=== PATIENT | male | born 1985 | race Hispanic/Latino ===

== ENCOUNTER 2018-08-12 07:08 | Observation (INO) | payer OTHER ==
[2018-08-12 07:24] VITALS: BMI 39.5
--- NOTE | 2018-08-12 07:56 | ED PDOC ---
HPI: Chest Pain Time Seen by Provider: 08/12/18 07:31 Chief Complaint (Nursing): Chest Pain Chief Complaint (Provider): Chest Pain History Per: Patient History/Exam Limitations: no limitations Onset/Duration Of Symptoms: Days (1) Quality: Sharp Alleviating Factors: Other (Any movement) Additional Complaint(s): 33 years old male presents to ER for evaluation of sharp constant chest pain onset last night while sleeping. Patient reports shortness of breath in certain positions and states pain worsens with any movement. He denies nausea, vomiting or recent travel. PMD: non provided Past Medical History Reviewed: Historical Data, Nursing Documentation, Vital Signs Vital Signs: Last Vital Signs Temp 98.7 F 08/12/18 07:24 Pulse 95 H 08/12/18 07:24 Resp 17 08/12/18 07:24 BP 187/121 H 08/12/18 07:24 Pulse Ox 97 08/12/18 07:24 - Medical History PMH: No Chronic Diseases - Surgical History Surgical History: No Surg Hx - Family History Family History: States: Unknown Family Hx - Social History Current smoker - smoking cessation education provided: No Alcohol: Social Drugs: Denies - Allergies Allergies/Adverse Reactions: Allergies Allergy/AdvReac Type Severity Reaction Status Date / Time No Known Allergies Allergy Verified 08/12/18 07:34 JEWEL Risk Score for UA/NSTEMI - JEWEL Risk Score Age > 64: NO 3 or more CAD Risk Factors: NO Known CAD (Stenosis greater than 50%): NO Aspirin use in past 7 days: NO Severe Angina: NO EKG ST changes greater than 0.5mm: NO Positive Cardiac Marker: NO JEWEL Score: 0 Risk %: 5% Review of Systems ROS Statement: Except As Marked, All Systems Reviewed And Found Negative Cardiovascular: Positive for: Chest Pain Respiratory: Positive for: Shortness of Breath Gastrointestinal: Negative for: Nausea, Vomiting Physical Exam - Reviewed Nursing Documentation Reviewed: Yes Vital Signs Reviewed: Yes - Physical Exam Appears: Positive for: Non-toxic, No Acute Distress (morbidly obese) Head Exam: Positive for: ATRAUMATIC, NORMOCEPHALIC Cardiovascular/Chest: Positive for: Regular Rate, Rhythm. Negative for: Murmur Respiratory: Positive for: Normal Breath Sounds. Negative for: Wheezing Extremity: Positive for: Normal ROM. Negative for: Pedal Edema, Swelling Neurologic/Psych: Positive for: Alert, Oriented (x3) - Laboratory Results Result Diagrams: 08/12/18 07:50 08/12/18 07:50 - ECG Interpretation Of ECG: NSR @ 91, TWI I, aVL, V6. O2 Sat by Pulse Oximetry: 97 (RA) Pulse Ox Interpretation: Normal Medical Decision Making Medical Decision Making: Time: 737 Initial Impression: Chest pain Initial Plan: --EKG --CMP --Magnesium --Troponin I --CBC --Chest x-ray --PTT/PT Accession No. : [id number] Patient Name / ID : ASHLEY DANIELSON / [id number] Exam Date : 08/12/2018 07:39:58 ( Approved ) Study Comment : Sex / Age : M / 33Y Creator : Dov Elizabeth MD Dictator : Dov Elizabeth MD Property Condition Assessor : Assistant Import Manager : Dov Elizabeth MD Approver2 : Report Date : 08/12/2018 08:03:34 My Comment : Date of service: 08/12/2018 PROCEDURE: CHEST RADIOGRAPH, 1 VIEW HISTORY: CP COMPARISON: None available. FINDINGS: LUNGS: No acute pulmonary disease appreciated bilaterally. PLEURA: No pneumothorax or pleural fluid seen. CARDIOVASCULAR: Cardiac silhouette appears somewhat prominent but without pulmonary vascular congestion. OSSEOUS STRUCTURES: No significant abnormalities. VISUALIZED UPPER ABDOMEN: Nonspecific right hemidiaphragm elevation noted. OTHER FINDINGS: None. IMPRESSION: Prominent cardiac silhouette. This may be a function of technical magnification however cardiomegaly is not excluded. Right hemidiaphragm elevation of indeterminate etiology. No airspace disease bilaterally. Scribe Attestation: Documented by Arely Rojas, acting as a scribe for Eugenia Mao MD. Provider Scribe Attestation: All medical record entries made by the Scribe were at my direction and personally dictated by me. I have reviewed the chart and agree that the record accurately reflects my personal performance of the history, physical exam, medical decision making, and the department course for this patient. I have also personally directed, reviewed, and agree with the discharge instructions and disposition. Disposition - Clinical Impression Clinical Impression: Chest pain - Patient ED Disposition Is Patient to be Admitted: Yes - Disposition Disposition Time: 09:54 Condition: STABLE Forms: [employer] (Romanian) - Pt Status Changed To: Hospital Disposition Of: Observation - POA Present On Arrival: None
--- NOTE | 2018-08-12 08:05 | RAD ---
Date of service: 08/12/2018 PROCEDURE: CHEST RADIOGRAPH, 1 VIEW HISTORY: CP COMPARISON: None available. FINDINGS: LUNGS: No acute pulmonary disease appreciated bilaterally. PLEURA: No pneumothorax or pleural fluid seen. CARDIOVASCULAR: Cardiac silhouette appears somewhat prominent but without pulmonary vascular congestion. OSSEOUS STRUCTURES: No significant abnormalities. VISUALIZED UPPER ABDOMEN: Nonspecific right hemidiaphragm elevation noted. OTHER FINDINGS: None. IMPRESSION: Prominent cardiac silhouette. This may be a function of technical magnification however cardiomegaly is not excluded. Right hemidiaphragm elevation of indeterminate etiology. No airspace disease bilaterally.
[2018-08-12 08:38] LABS: BASO # 0.1 K/uL (0.0-0.2); BASO % 0.5 % (0.0-2.0); EOS # 0.4 K/uL (0.0-0.7); EOS % 3.2 % (0.0-4.0); HEMOGLOBIN 13.7 g/dL (12.0-18.0); LYMPH # 1.9 K/uL (1.0-4.3); LYMPH % 14.2 % (20.0-40.0); MEAN CELL VOLUME 87.3 fl (80.0-94.0); MEAN CORPUSCULAR HEMOGLOBIN 29.8 pg (27.0-31.0); MEAN CORPUSCULAR HGB CONC 34.1 g/dL (33.0-37.0); MEAN PLATELET VOLUME 9.7 fl (7.2-11.7); MONO % 7.4 % (0.0-10.0); NEUT % 74.7 % (50.0-75.0); RBC 4.59 Mil/uL (4.40-5.90); RED CELL DISTRIBUTION WIDTH 13.6 % (11.5-14.5); WHITE BLOOD COUNT 13.5 K/uL (4.8-10.8)
[2018-08-12 08:48] LABS: INR 1.2; PROTHROMBIN TIME 13.1 Seconds (9.8-13.1)
[2018-08-12 08:50] LABS: PARTIAL THROMBOPLASTIN TIME 33.7 Seconds (25.6-37.1)
[2018-08-12 08:56] LABS: ALBUMIN 3.6 g/dL (3.5-5.0); ALT/SGPT 31 U/L (21-72); AST/SGOT 25 U/L (17-59); BLOOD UREA NITROGEN 14 mg/dl (9-20); CALCIUM 8.8 mg/dL (8.4-10.2); GFR NON-AFRICAN AMERICAN > 60; HDL CHOLESTEROL 35 MG/DL (30-70)
[2018-08-12 09:06] LABS: LDL CHOLESTEROL 134 mg/dL (0-129)
--- NOTE | 2018-08-12 13:17 | CARD ---
APPROVED REPORT Date of service: 08/12/2018 EKG Measurement Heart [id number] <Conclusion> Normal sinus rhythm ST & T wave abnormality, consider lateral ischemia Abnormal ECG
[2018-08-12] MEDS ORDERED: Pantoprazole 40 mg EC Tab PO SCH (15:15)
[2018-08-12 17:36] LABS: TROPONIN I 0.021 ng/mL (0.00-0.120)
[2018-08-12 17:41] LABS: T4 5.39 ug/dl (5.5-11.0)
[2018-08-12] MEDS: Sucralfate 1 gm/10 ml Oral Susp UD PO SCH ×2 (17:41→22:27)
[2018-08-12] MEDS: Oxycodone/Acetaminophen 5/325 mg Tab PO PRN ×2 (17:41→22:28)
[2018-08-12 17:55] LABS: T3 0.87 nmol/L (1.49-2.60)
[2018-08-12 21:44] LABS: BARBITURATES, UR NEGATIVE (NEGATIVE); BENZODIAZEPINES, UR NEGATIVE (NEGATIVE); OPIATES, UR POSITIVE (NEGATIVE); PHENCYCLIDINE, UR NEGATIVE (NEGATIVE)
--- NOTE | 2018-08-13 02:25 | CON ---
DATE: 08/12/2018 CARDIOLOGY CONSULTATION REASON FOR CONSULTATION: Chest pain. HISTORY OF PRESENT ILLNESS: The patient is a morbidly obese, young middle-aged male, weighs about 260 pounds, presented because of chest pain that he describes as sharp in the lower sternal area and increased on deep breathing or sighing. The patient denies any associated shortness of breath or diaphoresis and is unaware of any prior history of coronary artery disease. The patient denies any leg pain or leg swelling and is unaware of any history of deep venous thrombosis in the past. SOCIAL HISTORY: The patient is a nonsmoker. Occasional drinker. 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 He will get soon according to him. Has no children. REVIEW OF SYSTEMS: The patient has history of depression for which he takes bupropion and is also on Adderall 20 mg daily. The patient denies any suicidal ideations or any episode of major depression in the past. MEDICATIONS: Current medications are aspirin 81 mg once a day, Protonix 40 mg once a day. The patient did receive Lopressor 25 mg as well as sublingual nitroglycerin in the emergency room. PHYSICAL EXAMINATION: GENERAL: The patient is a young middle-aged male who does not appear to be in any acute distress. VITAL SIGNS: Blood pressure 142/88, heart rate 81, temperature 98.3, respirations 20. HEENT: Normocephalic. NECK: No JVD. CHEST: Clear. HEART: S1 and S2, regular. ABDOMEN: Soft. No guarding or rigidity. Normoactive bowel sounds. EXTREMITIES: No edema and no calf tenderness. LABORATORY DATA: SMA-7: Sodium 139, potassium 4, chloride 105, CO2 of 28, glucose 103, BUN 14, creatinine 0.8. Three sets of troponin are negative. Triglycerides elevated at 167, LDL cholesterol elevated at 134, total cholesterol and HDL cholesterol are within normal limits. PT, PTT, INR are within normal limits. Hemoglobin and hematocrit 13.7 and 40.1, white count 13.5, platelet count 214,000. EKG revealed sinus rhythm, ST-T wave changes, consider lateral ischemia. Chest x-ray revealed mild cardiomegaly as well as widened mediastinum. ASSESSMENT: 1. Chest pain and evidence of lateral ischemia, rule out myocardial infarction. 2. History of depression. 3. Hyperlipidemia. RECOMMENDATIONS: Continue aspirin 81 mg once a day, Protonix 40 mg once a day. Start Lipitor 40 mg once a day, subcutaneous Lovenox at 40 mg once a day. Obtain an echocardiogram, D-dimer as well as urine for tox screen and if HI is ruled out, schedule the patient for exercise Myoview stress test. Martin De Jesus MD
[2018-08-13] MEDS: Sucralfate 1 gm/10 ml Oral Susp UD PO SCH ×4 (08:32→21:56)
[2018-08-13] MEDS ORDERED: Perflutren Lipid Microsphere 1.5 ML SUS IV ONE (13:29)
--- NOTE | 2018-08-13 18:22 | CARD ---
APPROVED REPORT Date of service: 08/13/2018 EXAM: Two-dimensional and M-mode echocardiogram with Doppler and color Doppler. Other Information Quality : AverageRhythm : NSR INDICATION Chest Pain 2D DIMENSIONS SV50.79 mlLVEF (%)31.7 (>50%) CO4.39 L/min M-Mode DIMENSIONS Left Atrium (MM)4.57 (2.5-4.0cm)Aortic Root3.97 (2.2-3.7cm) Aortic Cusp Exc.2.80 (1.5-2.0cm) Aortic Valve AoV Peak Cororiqj184.0cm/sAoV VTI21.5cmAO Peak GR.7mmHg LVOT Peak Zraklzmq39.8cm/sLVOT VTI16.13cmAO Mean GR.4mmHg Mitral Valve MV E Ntzlixdj16.0cm/sMV E Peak Gr.94mmHgMV DECEL [id number] MV A Ufhqukhs23.7cm/sMV YVS21unJ/A ratio0.9 MVA (PHT)3.81cm2 TDI Lateral E' Peak V8.39cm/sMedial E' Peak V6.60cm/sE/Lateral E'6.9 E/Medial E'8.8 Tricuspid Valve RAP MLESPCPL0wlPi LEFT VENTRICLE The left ventricle is normal size. There is normal left ventricular wall thickness. The left ventricular systolic function is normal. The estimated ejection fraction is 60-65% No regional wall motion abnormalities noted.. Transmitral Doppler flow pattern is Grade I-abnormal relaxation pattern. No left ventricle thrombus noted on this study. There is no ventricular septal defect visualized. There is no left ventricular aneurysm. There is no mass noted in the left ventricle. RIGHT VENTRICLE The right ventricle is normal size. There is normal right ventricular wall thickness. The right ventricular systolic function is normal. ATRIA The left atrium is mildly dilated. The right atrium size is normal. The interatrial septum is intact with no evidence for an atrial septal defect. AORTIC VALVE The aortic valve is normal in structure. No aortic regurgitation is present. There is no aortic valvular stenosis. There is no aortic valvular vegetation. MITRAL VALVE The mitral valve is normal in structure. There is no evidence of mitral valve prolapse. There is no mitral valve stenosis. There is trace to mild mitral valve regurgitation noted. TRICUSPID VALVE The tricuspid valve is normal in structure. There is trace tricuspid valve regurgitation. There is no tricuspid valve prolapse or vegetation. There is no tricuspid valve stenosis. PULMONIC VALVE The pulmonary valve is normal in structure. There is no pulmonic valvular regurgitation. There is no pulmonic valvular stenosis. GREAT VESSELS The aortic root is normal in size. The ascending aorta is normal in size. The pulmonary artery is normal. The IVC is normal in size and collapses >50% with inspiration. PERICARDIAL EFFUSION There is no pericardial effusion. There is no pleural effusion. <Conclusion> Technically difficult study. Definity contrast was used for endocardial definition. The estimated ejection fraction is 55-60% Transmitral Doppler flow pattern is Grade I-abnormal relaxation pattern. The left atrium is mildly dilated. There is trace to mild mitral valve regurgitation noted. There is trace tricuspid valve regurgitation.
--- NOTE | 2018-08-13 19:40 | HP ---
HISTORY OF PRESENT ILLNESS: Mr. Hannah is a 33-year-old morbidly obese male who was admitted by the emergency room because of chest pain. Pain was sharp in nature, lower sternum to mid abdominal area with no radiation. He indicated that he had pain on and off for several days before coming to the emergency room. In the emergency room, he was admitted to rule out acute coronary syndrome. PAST MEDICAL HISTORY: He has a past medical history of abdominal pain in the past and has had an endoscopy, which showed some esophagitis. Denies any prior medical history except for esophagitis. FAMILY HISTORY: Noncontributory. SOCIAL HISTORY: He does not smoke or drink. REVIEW OF SYSTEMS: Essentially remarkable for abdominal and chest pains. The patient also complains of snoring and poor sleep hygiene. PHYSICAL EXAMINATION: GENERAL: The patient is morbidly obese with about 250 pounds. He is awake, alert, and oriented. VITAL SIGNS: Blood pressure 140/88 with a pulse of 80, respiratory rate of 18 to 20. He is afebrile. O2 sat is 98% on room air. SKIN: Shows fair turgor. HEENT: Pupils are equal and reactive to light and accommodation. Mouth shows fair hygiene. LUNGS: Clear. HEART: Regular. No murmurs or gallop. No chest wall tenderness. ABDOMEN: Soft with some mid epigastric tenderness. No organomegaly appreciated. EXTREMITIES: Shows no edema or cyanosis. CENTRAL NERVOUS SYSTEM: Exam grossly intact. LABORATORY DATA: Remarkable for normal electrolytes, troponin first set negative. EKG, sinus rhythm, questionable ST-T changes. Chest x-ray with no acute cardiopulmonary pathology except for mild cardiomegaly. IMPRESSION: Chest pain, one has to rule out acute coronary syndrome; however, pain might be more abdominal, history of hyperlipidemia, morbid obesity, rule out obstructive sleep apnea syndrome. PLAN: Cardiac evaluation. Continue monitoring telemetry. If clinically stable and cleared by Cardiology, the patient will be probably discharged in 24 to 48 hours and further workup as outpatient. Dereje Wills MD
--- NOTE | 2018-08-13 20:11 | PN ---
DATE: 08/13/2018 SUBJECTIVE: The patient denies chest pain and no reported ventricular arrhythmia. PHYSICAL EXAMINATION: VITAL SIGNS: Blood pressure 149/91, heart rate 99, temperature 97.9, and respirations 20. HEENT: Normocephalic. CHEST: Clear. HEART: S1 and S2 regular. ABDOMEN: Soft. EXTREMITIES: No edema. LABORATORY DATA: Three sets of troponins are negative. D-dimer is within normal limits and urine drug screen is positive for opiates and cocaine. I did review the echo, which revealed depressed ejection fraction with significant lateral wall hypokinesis. ASSESSMENT: 1. Chest pain, status post cocaine abuse. 2. Depressed ejection fraction with segmental lateral hypokinesis, rule out ischemic cardiomyopathy. 3. Hyperlipidemia. 4. Hypertension. RECOMMENDATIONS: Continue aspirin 81 mg once a day, Imdur 60 mg once a day, and Lipitor 40 mg once a day. I will start enalapril 2.5 mg once a day and Plavix 75 mg once a day. Cardiac catheterization was recommended. The procedure and its risks were explained to the patient, who has not made operative decision yet. However, the patient was scheduled for tomorrow afternoon at [facility] in case he agrees for the procedure. The patient requested to go home first before doing any procedure; however, the patient was informed that if he has to leave the hospital, he has to leave it on his responsibility against medical advice. Martin De Jesus MD
[2018-08-14] MEDS: Sucralfate 1 gm/10 ml Oral Susp UD PO SCH ×3 (08:18→16:51)
--- NOTE | 2018-08-14 09:57 | CP.PCM.PN ---
Subjective - Date & Time of Evaluation Date of Evaluation: 08/14/18 Time of Evaluation: 09:57 - Subjective Subjective: DENIES CHEST PAINS/SOB SNORING LOUDLY DURING SLEEP Objective - Vital Signs/Intake and Output Vital Signs (last 24 hours): Temp Pulse Resp BP Pulse Ox 98.2 F 100 H 20 168/94 H 96 08/14/18 09:43 08/14/18 09:43 08/14/18 09:43 08/14/18 09:43 08/14/18 09:43 - Medications Medications: Current Medications Aspirin (Aspirin Chewable) 81 mg PO DAILY [facility] Last Admin: 08/14/18 08:17 Dose: 81 mg Atorvastatin Calcium (Lipitor) 40 mg PO DAILY [facility] Last Admin: 08/14/18 08:18 Dose: 40 mg Clopidogrel Bisulfate (Plavix) 75 mg PO DAILY [facility] Last Admin: 08/14/18 08:17 Dose: 75 mg Enalapril Maleate (Vasotec) 2.5 mg PO DAILY [facility] Last Admin: 08/14/18 08:17 Dose: 2.5 mg Isosorbide Mononitrate (Imdur) 60 mg PO DAILY [facility] Last Admin: 08/14/18 08:17 Dose: 60 mg Oxycodone/Acetaminophen (Percocet 5/325 Mg Tab) 1 tab PO Q4 PRN PRN Reason: Pain, moderate (4-7) Stop: 08/15/18 16:47 Last Admin: 08/12/18 22:28 Dose: 1 tab Sucralfate (Carafate Oral Susp) 1 gm PO QID [facility] Last Admin: 08/14/18 08:18 Dose: 1 gm - Labs Labs: 08/12/18 07:50 08/12/18 07:50 PT 13.1 Seconds (9.8-13.1) 08/12/18 07:50 INR 1.2 08/12/18 07:50 APTT 33.7 Seconds (25.6-37.1) 08/12/18 07:50 - Constitutional Appears: No Acute Distress - Head Exam Head Exam: ATRAUMATIC, NORMAL INSPECTION, NORMOCEPHALIC - Eye Exam Eye Exam: EOMI, Normal appearance, PERRL Pupil Exam: NORMAL ACCOMODATION, PERRL - ENT Exam ENT Exam: Mucous Membranes Moist, Normal Exam - Neck Exam Neck Exam: Full ROM, Normal Inspection. absent: Lymphadenopathy - Respiratory Exam Respiratory Exam: Clear to Ausculation Bilateral, NORMAL BREATHING PATTERN - Cardiovascular Exam Cardiovascular Exam: REGULAR RHYTHM, +S1, +S2. absent: Murmur - GI/Abdominal Exam GI & Abdominal Exam: Soft, Normal Bowel Sounds. absent: Tenderness - Rectal Exam Rectal Exam: NORMAL INSPECTION - Extremities Exam Extremities Exam: Full ROM, Normal Capillary Refill, Normal Inspection. absent: Joint Swelling, Pedal Edema - Back Exam Back Exam: NORMAL INSPECTION - Neurological Exam Neurological Exam: Alert, Awake, CN II-XII Intact, Normal Gait, Oriented x3 - Psychiatric Exam Psychiatric exam: Normal Affect, Normal Mood - Skin Skin Exam: Dry, Intact, Normal Color, Warm Assessment and Plan - Assessment and Plan (Free Text) Assessment: CHEST PAIN R/O ACS MOBID OBESITY ILLICIT DRUG USE PROBABLE SLEEP APNEA SYNDROME Plan: FOR CARDIAC CATH TODAY
[2018-08-14 16:57] VITALS: BP 158/94; PULSE 101; RESP 18; TEMP 98.3; O2SAT 97
--- NOTE | 2018-08-15 09:30 | CP.PCM.DIS ---
Provider - Provider Date of Admission: 08/12/18 09:52 Attending physician: Dereje Wills MD Time Spent in preparation of Discharge (in minutes): 35 Diagnosis - Discharge Diagnosis (1) Illicit drug use Status: Acute (2) Gastritis Status: Acute (3) Chest pain Status: Acute Hospital Course - Lab Results Lab Results: Most Recent Lab Values WBC 13.5 K/uL (4.8-10.8) H 08/12/18 07:50 RBC 4.59 Mil/uL (4.40-5.90) 08/12/18 07:50 Hgb 13.7 g/dL (12.0-18.0) 08/12/18 07:50 Hct 40.1 % (35.0-51.0) 08/12/18 07:50 MCV 87.3 fl (80.0-94.0) 08/12/18 07:50 MCH 29.8 pg (27.0-31.0) 08/12/18 07:50 MCHC 34.1 g/dL (33.0-37.0) 08/12/18 07:50 RDW 13.6 % (11.5-14.5) 08/12/18 07:50 Plt Count 214 K/uL (130-400) 08/12/18 07:50 MPV 9.7 fl (7.2-11.7) 08/12/18 07:50 Neut % (Auto) 74.7 % (50.0-75.0) 08/12/18 07:50 Lymph % (Auto) 14.2 % (20.0-40.0) L 08/12/18 07:50 Woods % (Auto) 7.4 % (0.0-10.0) 08/12/18 07:50 Eos % (Auto) 3.2 % (0.0-4.0) 08/12/18 07:50 Baso % (Auto) 0.5 % (0.0-2.0) 08/12/18 07:50 Neut # (Auto) 10.0 K/uL (1.8-7.0) H 08/12/18 07:50 Lymph # (Auto) 1.9 K/uL (1.0-4.3) 08/12/18 07:50 Woods # (Auto) 1.0 K/uL (0.0-0.8) H 08/12/18 07:50 Eos # (Auto) 0.4 K/uL (0.0-0.7) 08/12/18 07:50 Baso # (Auto) 0.1 K/uL (0.0-0.2) 08/12/18 07:50 PT 13.1 Seconds (9.8-13.1) 08/12/18 07:50 INR 1.2 08/12/18 07:50 APTT 33.7 Seconds (25.6-37.1) 08/12/18 07:50 D-Dimer, Quantitative < 200 ng/mlDDU (0-230) 08/12/18 15:45 Sodium 139 mmol/l (132-148) 08/12/18 07:50 Potassium 4.0 MMOL/L (3.6-5.0) 08/12/18 07:50 Chloride 105 mmol/L (98-107) 08/12/18 07:50 Carbon Dioxide 28 mmol/L (22-30) 08/12/18 07:50 Anion Gap 10 (10-20) 08/12/18 07:50 BUN 14 mg/dl (9-20) 08/12/18 07:50 Creatinine 0.8 mg/dl (0.8-1.5) 08/12/18 07:50 Est GFR ( Amer) > 60 08/12/18 07:50 Est GFR (Non-Af Amer) > 60 08/12/18 07:50 Random Glucose 103 mg/dL (75-110) 08/12/18 07:50 Calcium 8.8 mg/dL (8.4-10.2) 08/12/18 07:50 Magnesium 2.0 MG/DL (1.6-2.3) 08/12/18 07:50 Total Bilirubin 0.4 mg/dl (0.2-1.3) 08/12/18 07:50 AST 25 U/L (17-59) 08/12/18 07:50 ALT 31 U/L (21-72) 08/12/18 07:50 Alkaline Phosphatase 66 U/L (38-126) 08/12/18 07:50 Troponin I 0.0230 ng/mL (0.00-0.120) 08/13/18 00:25 Total Protein 7.1 G/DL (6.3-8.2) 08/12/18 07:50 Albumin 3.6 g/dL (3.5-5.0) 08/12/18 07:50 Globulin 3.5 gm/dL (2.2-3.9) 08/12/18 07:50 Albumin/Globulin Ratio 1.0 (1.0-2.1) 08/12/18 07:50 Triglycerides 167 mg/DL (0-149) H 08/12/18 07:50 Cholesterol 177 mg/dL (0-199) 08/12/18 07:50 LDL Cholesterol Direct 134 mg/dL (0-129) H 08/12/18 07:50 HDL Cholesterol 35 MG/DL (30-70) 08/12/18 07:50 Thyroxine (T4) 5.39 ug/dl (5.5-11.0) L 08/12/18 15:45 Total T3 0.870 nmol/L (1.49-2.60) L 08/12/18 15:45 TSH 3rd Generation 0.91 mIU/ML (0.46-4.68) 08/12/18 15:45 Urine Opiates Screen Positive (NEGATIVE) H 08/12/18 21:14 Urine Methadone Screen Negative (NEGATIVE) 08/12/18 21:14 Ur Barbiturates Screen Negative (NEGATIVE) 08/12/18 21:14 Ur Phencyclidine Scrn Negative (NEGATIVE) 08/12/18 21:14 Ur Amphetamines Screen Negative (NEGATIVE) 08/12/18 21:14 U Benzodiazepines Scrn Negative (NEGATIVE) 08/12/18 21:14 U Oth Cocaine Metabols Positive (NEGATIVE) H 08/12/18 21:14 U Cannabinoids Screen Negative (NEGATIVE) 08/12/18 21:14 - Hospital Course Hospital Course: CARDIAC CATH--NON-REVEALING Discharge Exam - Head Exam Head Exam: ATRAUMATIC, NORMAL INSPECTION, NORMOCEPHALIC - Eye Exam Eye Exam: EOMI, Normal appearance, PERRL Pupil Exam: NORMAL ACCOMODATION, PERRL - ENT Exam ENT Exam: Normal Exam - Neck Exam Neck exam: Normal Inspection - Respiratory Exam Respiratory Exam: NORMAL BREATHING PATTERN - Cardiovascular Exam Cardiovascular Exam: REGULAR RHYTHM - GI/Abdominal Exam GI & Abdominal Exam: Normal Bowel Sounds - Rectal Exam Rectal Exam: NORMAL INSPECTION - Neurological Exam Neurological exam: Alert, CN II-XII Intact, Normal Gait, Oriented x3, Reflexes Normal - Psychiatric Exam Psychiatric exam: Normal Affect, Normal Mood - Skin Skin Exam: Dry, Intact, Normal Color, Warm Discharge Plan - Follow Up Plan Condition: STABLE Disposition: HOME/ ROUTINE Patient education suggested?: Yes Instructions: Cardiac Catheterization (DC), Chest Pain (DC) Additional Instructions: follow up with pmd in 1 week Referrals: Martin De Jesus MD [Staff Provider] - Dereje Wills MD [Staff Provider] -
== END 2018-08-14 20:10 | disposition home or self-care (01) ==
LOC: H.ER 07:08 → H.ERHOLD 09:52 → H.TEL 14:07
PROVIDERS: ADMIT Internal Medicine Pulmonary Disease; ATTEND Internal Medicine Pulmonary Disease
DX: T40.5X1A Poisoning by cocaine, accidental (unintentional), initial encounter (principal); R07.9 Chest pain, unspecified; E66.01 Morbid (severe) obesity due to excess calories; F32.9 Major depressive disorder, single episode, unspecified; E78.5 Hyperlipidemia, unspecified; I10 Essential (primary) hypertension; K29.70 Gastritis, unspecified, without bleeding; F14.10 Cocaine abuse, uncomplicated; Z68.39 Body mass index [BMI] 39.0-39.9, adult
CPT/HCPCS: 36415; 71045; 80053; 80061; 80324; 80345; 80346; 80349; 80353; 80358; 80361; 83735; 83992; 84436; 84443; 84480; 84484; 85025; 85378; 85610; 85730; 93005; 93306; 93452; 93567; 99285; G0378